=== PATIENT | male | born 1990 | race Caucasian/White ===

== ENCOUNTER 2019-04-15 15:53 | Outpatient (REF) | payer OTHER, SELFPAY ==
[2019-04-15 19:05] LABS: Abs Immature Grans 0.01 k/cumm (0.0-0.09); Absolute Basophil Count 0.03 k/cumm (0.0-0.2); Absolute Eosinophil Count 0.12 k/cumm (0.0-0.7); Absolute Monocyte Count 0.58 k/cumm (0.11-0.7); Absolute Neutrophil Count 3.77 k/cumm (1.2-6.7); Basophils % 0.4; Eosinophils % 1.7; HCT 43.7 % (40.0-50.0); HGB 14.8 g/dL (13.5-17.5); Immature Grans % 0.1 %; Lymphocytes % 35.7; Mean Corp. HGB Concentration 33.9 g/dL (32.0-36.0); Mean Corpuscular Hemoglobin 29.7 pg (27.0-33.0); Mean Corpuscular Volume 87.8 fL (80-95); Mean Platelet Volume 9.7 fL (8.0-11.0); Monocytes % 8.3; Neutrophils % 53.8; Platelet Count 306 x1000/uL (130-400); RBC 4.98 m/cumm (4.50-6.00); RBC Distribution Width 12.4 % (11.8-14.1); White Blood Cell Count 7.01 k/cumm (4.4-10.8)
[2019-04-15 19:34] LABS: TSH (W/Ref FT4) 1.69 uIU/mL (0.36-3.74)
== END 2019-04-15 16:13 ==
LOC: LBN 15:53
PROVIDERS: PCP Family Medicine; Visit Provider Family Medicine
DX: R53.83 Other fatigue (principal)
CPT/HCPCS: 84443; 85025

== ENCOUNTER 2022-03-13 09:08 | Emergency (ER) | payer OTHER, MEDICAID, SELFPAY ==
[2022-03-13 09:26] VITALS: BP 120/67; PULSE 82; RESP 16; TEMP 36.6; O2SAT 99
--- NOTE | 2022-03-13 10:21 | W.ED.GENAD ---
Discharge Plan Disposition Patient Disposition: Home Condition: Stable Discharge Details Clinical Impression: Influenza A Primary Care Provider: Dante Amaya ED Provider: Shaye Corcoran Home Meds and New Rx's Prescriptions: No Action No Known Home Meds Discharge Instructions Instructions: H1N1 Influenza (ED) Additional Instructions: Your labs are pertinent for flu positive. Please encourage hydration. You may continue with Tylenol and/or ibuprofen as needed for discomfort or fevers. Please follow-up with primary care in 1 to 2 weeks for reevaluation. Please wash your hands and continue to quarantine to prevent spread of the virus. Especially take care around her . Work note has been faxed to your place of work and clearing you for this week. Stand Alone Forms: Work Release Referrals: Dante Amaya DO [Primary Care Provider] - Discharge Data Discharge Date/Time-TO BE ENTERED AT DEPARTURE: 03/13/22 10:40 Medical Decision Making Patient is a pleasant 31-year-old gentleman presenting today with chief complaint of cough, congestion, sore throat, subjective fevers. States that these began 3 days ago. Patient is otherwise healthy with no chronic comorbidities. States that he had also been ill for 5 days prior to that and was diagnosed with [id number]-mouth which his children also suffer from. Patient is not vaccinated against COVID. On exam, patient appears nontoxic. He is hemodynamically stable. Lungs are clear, normal cardiac exam. No evidence at this time to suggest PE, ACS, severe bacterial infection. More consistent with viral illness. Will obtain rapid testing. Patient positive for influenza A. We discussed supportive care. Patient is not high risk patient does not meet criteria for treatment currently. We did discuss need for hydration. Return precautions were discussed. All questions and concerns were addressed and he is in agreement this plan. [facility] General Date/Time Provider Initiated Documentation: 03/13/22 09:39. Limitations to Documentation: no limitations. Information obtained by: patient and RN notes reviewed. History of Present Illness 31 year old M presents to the emergency department with the chief complaint of cough, sore throat, fatigue, described as moderate, Quality is described as aching (body aches), Patient started experiencing this day(s) (3) and it has been constant. No relieving factors improve symptom(s), No exacerbating factors reported . Patient notes cough, fever/chills, loss of appetite and malaise; denies chest pain, headaches, nausea/vomiting and shortness of breath. Patient did receive the following treatments prior to arrival, none Related Data Home Medications Medication Instructions Recorded Confirmed Unknown [No Known Home Meds] 04/15/19 03/13/22 Allergies Allergy/AdvReac Type Severity Reaction Status Date / Time No Known Allergies Allergy Verified 03/13/22 09:29 General Stated Complaint: Sorethroat ARNOL: 4 Review of Systems Constitutional Constitutional: Reports as per HPI and Denies headache(s) Eyes Eyes: Reports as per HPI, Denies eye discharge and Denies irritation ENT Ears, Nose, Mouth, and Throat: Reports as per HPI and Denies headache(s) Cardiovascular Cardiovascular: Reports as per HPI, Denies chest pain and Denies dyspnea Respiratory Respiratory: Reports as per HPI and Denies dyspnea Gastrointestinal Gastrointestinal: Reports as per HPI, Denies abdominal pain, Denies change in bowel habits, Denies nausea and Denies vomiting Integumentary/Breasts Skin/Breast: Reports as per HPI and Denies rash Neurologic Neurologic: Reports as per HPI and Denies headache(s) PFSH All Active Problems (Updated 03/13/22 @ 10:32 by SANDOVAL Harris) Influenza A (Acute) Viral respiratory infection (Acute) Social History (Updated 05/19/19 @ 08:50 by Dory Jameson LPN) Smoking/Tobacco Use Status: Never Smoking risk assessment performed?: Yes Alcohol Intake: never Drug use: Never Substance use type: does not use Household members: spouse and children Number of Children: 1 Communication Needs: Corrective Lenses current occupation: works at [employer] at [employer] What is your relationship status?: Panel score (0-1 are the most socially isolated patients): 1 What type of physical activity do you participate in: other Frequency: daily Seatbelt use: always Drive intox 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 Working smoke detector in home: Yes Carbon monox detector in home: Yes Do you feel safe at home: Yes Do you feel safe in your relationship?: Yes Exam Const General: cooperative, healthy appearing, comfortable, no acute distress, well developed and well groomed Nutritional Appearance: average body habitus and well nourished Orientation: alert and awake [facility] Head: normal to inspection, normocephalic and atraumatic Ears: hearing grossly normal bilaterally, external ears normal and TM's normal bilaterally General nose exam: external nose normal and nares normal Face and sinus: normal facial exam, sinuses nontender and face symmetric Mouth: oral mucosae normal, lip normal, tongue normal, oropharynx normal and moist mucous membranes Teeth and gingiva: dentition normal Throat: posterior oropharynx normal, tonsils normal and uvula midline Eyes General: appearance normal, both eyes and all related structures Neck Neck: normal visual inspection, full ROM, no lymphadenopathy and no meningeal signs Resp Effort & Inspection: normal respiratory effort, able to speak in complete sentences and no respiratory distress Auscultation: clear to auscultation bilaterally, no rales, no rhonchi and no wheezes Cardio Rate: regular rate Rhythm: regular rhythm Heart Sounds: S1 normal and S2 normal Skin General skin exam: no rashes or lesions noted Neuro General: patient alert and patient awake Cognition: normal cognition Speech: speech normal Gait: normal gait Psych Appearance: grossly normal and well kempt Mental Status: mental status grossly normal Speech and Movement: speech and movement normal Course Vital Signs Vital signs: Vital Signs Temperature 36.6 C 03/13/22 09:26 Pulse 82 03/13/22 09:26 Respiratory Rate 16 03/13/22 09:26 Blood Pressure 120/67 03/13/22 09:26 Pulse Oximetry 99 03/13/22 09:26 Temperature 36.6 C 03/13/22 09:26 Temperature Source Temporal Artery Scan 03/13/22 09:26 Pulse 82 03/13/22 09:26 Respiratory Rate 16 03/13/22 09:26 Respiratory Effort Non-Labored 03/13/22 09:29 Blood Pressure 120/67 03/13/22 09:26 Blood Pressure Position Sitting 03/13/22 09:26 Pulse Oximetry 99 03/13/22 09:26 Oxygen Delivery Method Room Air 03/13/22 09:26 Oxygen Flow Rate 0 03/13/22 09:26 Lab/Test Results Lab/Test Results: 03/13/22 09:30 Tonsil - Not Specified Group A Streptococcus Culture - Pending POC Strep Test-ELBA(Rapid) Start: 03/13/22 09:38 Freq: Status: Active Protocol: Document 03/13/22 09:38 (Rec: 03/13/22 09:38 [id number]) Strep test-ELBA(Rapid)-POC POC-Strep test-ELBA (Rapid) Negative POC-Strep test-ELBA (Rapid) Negative
[2022-03-13 10:37] VITALS: BP 132/71; PULSE 91; RESP 16; TEMP 36.8; O2SAT 98
== END 2022-03-13 10:40 | disposition home or self-care (01) ==
PROVIDERS: Emergency Provider Physician Assistant; PCP Family Medicine
DX: J10.1 Influenza due to other identified influenza virus with other respiratory manifestations (principal)
CPT/HCPCS: 87880; 99282; 87081